=== PATIENT | female | born 1940 | race Caucasian/White ===

== ENCOUNTER 2017-12-25 01:12 | Inpatient (IN) | payer MEDICARE ==
[~2017-12-25] VITALS: Ht 149.9 cm; Wt 99.8 kg
--- NOTE | ~2017-12-25 | CN ---
PATIENT NAME:AISHWARYA ARCE MEDICAL RECORD: [id number] : 44 LOCATION:[facility] ADMIT DATE: 12/25/17 ACCOUNT: [id number] CONSULTING PHYSICIAN: HELDER BAKER MD REFERRING PHYSICIAN: ZACH RUVALCABA MD DATE OF CONSULTATION: 12/25/2017 CONSULT REQUESTING PHYSICIAN: Zach Ruvalcaba MD REASON FOR CONSULTATION: Shortness of breath, pneumonia. HISTORY OF PRESENT ILLNESS: Ms. Arce is a 77-year-old female. She is a bit confused. According to the patient, a couple of days ago, she had a laparoscopic surgery. She was discharged home. Since then, she has worsening shortness of breath. She is wheezing. She is coughing. She is running some fever and also she has abdominal pain. There is no associated nausea, vomiting, no diarrhea. REVIEW OF SYSTEMS: Mainly in the history of present illness. PAST MEDICAL HISTORY: 1. COPD. 2. Congestive heart failure. 3. Chronic hypoxic respiratory failure. 4. History of ovarian cancer. PAST SURGICAL HISTORY: 1. She has hysterectomy. 2. Colonoscopy. 3. Partial colectomy. 4. Recent laparoscopic surgery. The procedure is unknown. ALLERGIES: She is allergic to PENICILLIN, TYLENOL, HYDROCODONE, LORAZEPAM, MORPHINE, AND OXYCODONE. PRESENT MEDICATIONS: She is on Levaquin p.o. at home and she is on Lasix 40 mg b.i.d. PERSONAL AND SOCIAL HISTORY: The patient was still a current everyday smoker. She claims she quit a month ago. She is a nondrinker. FAMILY HISTORY: Noncontributory. PHYSICAL EXAMINATION: GENERAL: Now, the patient is lying comfortably. She is not in acute distress. VITAL SIGNS: The blood pressure is 120/59, pulse is 86, respiration is 17, temperature 97.9, SPO2 is 94% on 2 liters nasal cannula. HEENT: Conjunctivae is pink, sclerae nonicteric. NECK: Supple, no JVD. CHEST: There are bilateral crackles, wheeze on forceful expiration. HEART: Rate and rhythm regular, normal sound, no murmur. ABDOMEN: Soft, but is tender on palpation. Bowel sounds normal. RECTAL: Deferred. EXTREMITIES: No cyanosis, no clubbing. There is 1+ pedal edema. SKIN: Warm, normal turgor. CONSULT REPORT [id number] AISHWARYA ARCE CENTRAL NERVOUS SYSTEM: The patient is awake and alert, but she is confused. There is no obvious cranial nerve abnormality. IMAGING: Chest radiograph: There are bibasilar infiltrates. There are increased interstitial markings. OTHER LABORATORY DATA: CBC: WBC is 9.2, hemoglobin 11.9, hematocrit 38.6, platelet count is 333. Chemistry: Sodium 142, potassium 3.7, BUN is 5, creatinine is 1. IMPRESSION: 1. Pajkx-ve-rxlrgpb hypoxic respiratory failure. 2. Acute exacerbation of chronic obstructive pulmonary disease. 3. Bibasilar pneumonia, most likely hospital-acquired pneumonia. 4. Pleural effusion. 5. Congestive heart failure, possible chronic systolic dysfunction. 6. Pulmonary edema. 7. Tobacco dependence syndrome. 8. Status post laparoscopic surgery. The place and purpose is unknown. RECOMMENDATION: 1. Start on meropenem and Levaquin IV to cover for Gram-negative rods, anaerobe. 2. Albuterol/ipratropium nebulizer. 3. Brovana, budesonide nebulizer. 4. Hold on IV corticosteroid. 5. IV Lasix. 6. Follow up labs and chest radiograph. 7. We will try from the family that where she had the surgery. Dr. Ruvalcaba, thank you for involving me in the care of Ms. Arce. TRANSINT:[id number] Voice Confirmation ID: [id number] DOCUMENT ID: [id number] HELDER BAKER MD at 1340 CC: ZACH RUVALCABA [id number] DICTATION DATE: 12/25/17 1617 JEWEL LATHE OPERATOR: 12/26/17 0038 DIS IN 12/29/17 [facility] [address] [facility] [place] [address]
[~2017-12-25 01:12] MED LIST: AUGMENTIN 875-11 TAB PO; CHLORASEPTIC177 ML TOPICAL; DIFLUCAN150 MG PO; DIFLUCAN200 MG PO; LASIX40 MG PO; LEVAQUIN500 MG PO; PROVENTIL HFA6.7 GM INH; ROBITUSSIN AC (10 M1 PO; XANAX0.5 MG PO
[2017-12-25 01:47] LABS: BASOPHILS 0.2 % (0-2); EOSINOPHILS 3.8 % (0-7); HEMATOCRIT 38.6 % (36.0-48.0); HEMOGLOBIN 11.9 g/dL (12-16); IMMATURE GRANULOCYTES 1.2 % (0-5); LYMPHOCYTES 14.5 % (15-50); MCH 27.8 pg (26.0-34.0); MCHC 30.8 g/dL (31.0-37.0); MCV 90.2 fL (80.0-100.0); MONOCYTES 10.3 % (2-11); RBC 4.28 10x6/uL (4.00-5.40); RDW 15.6 % (11.5-14.5); WBC 9.2 10x3/uL (4.8-10.8)
[2017-12-25 01:48] LABS: PLATELET COUNT 333 10x3/uL (130-400)
[2017-12-25 01:54] LABS: ALKALINE PHOSPHATASE 53 U/L (46-116); ALT (SGPT) 10 U/L (10-68); APTT 34.8 SECONDS (22.8-39.4); BILIRUBIN - TOTAL 0.32 mg/dL (0.2-1.3); CALC OSMOLALITY 280 mosm/kg (275-300); CARBON DIOXIDE 30.9 mmol/L (21.0-32.0); CHLORIDE - SERUM 106 mmol/L (98-107); GLUCOSE 110 mg/dL (74-106); INR 1.03 (0.85-1.17); POTASSIUM - SERUM 3.7 mmol/L (3.5-5.1); PROTEIN - SERUM 5.3 g/dL (6.4-8.2); PROTIME 13.1 SECONDS (11.6-15.0); SODIUM 142 mmol/L (136-145); UREA NITROGEN 5 mg/dL (7-18); eGFR NON AFRICAN AMERICAN 57 mL/min (90-120)
[2017-12-25 02:01] LABS: PRO BNP 3045 pg/mL (0-450)
[2017-12-25 02:03] LABS: TROPONIN-I < 0.017 ng/mL (0.000-0.060)
[2017-12-25 02:27] LABS: AMYLASE - SERUM 35 U/L (25-115); CKMB 0.5 U/L (0.0-3.6); CREATINE KINASE 20 UL (21-215); LIPASE 123 U/L (73-393)
[2017-12-25] MEDS ORDERED: XANAX1 MG PO (06:53)
[2017-12-25] MEDS ORDERED: PROAIR HFA8.5 GM INH (06:53)
[2017-12-25] MEDS ORDERED: CIPRO500 MG PO (06:54)
[2017-12-25] MEDS ORDERED: COREG 3.1253.125 MG PO (06:54)
[2017-12-25] MEDS ORDERED: VITAMIN D250000 UNIT PO (06:55)
[2017-12-25] MEDS ORDERED: IOPHEN-C NR LI473 ML PO (06:55)
[2017-12-25] MEDS ORDERED: GABAPENTIN100 MG PO (06:56)
[2017-12-25] MEDS ORDERED: LASIX40 MG PO (06:56)
[2017-12-25] MEDS ORDERED: FLAGYL500 MG PO (06:57)
[2017-12-25] MEDS ORDERED: ELOCON45 GM TOPICAL (06:58)
[2017-12-25] MEDS ORDERED: ULTRAM50 MG PO (06:59)
[2017-12-25 07:25] VITALS: BP 112/68; BMI 44.5
[2017-12-25 08:15] VITALS: BP 120/59
[2017-12-25 11:26] LABS: APPEARANCE CLEAR (CLEAR); COLOR STRAW (YELLOW); SPECIFIC GRAVITY 1.005 (1.005-1.020)
[2017-12-25 11:27] LABS: BILIRUBIN NEGATIVE (NEGATIVE); GLUCOSE NEGATIVE (NEGATIVE); KETONE NEGATIVE (NEGATIVE); NITRITE NEGATIVE (NEGATIVE); PROTEIN NEGATIVE (NEGATIVE); UROBILINOGEN NORMAL (NORMAL)
[2017-12-25 12:05] VITALS: Ht 149.9 cm; Wt 99.8 kg
[2017-12-25 13:04] VITALS: BP 108/66
[2017-12-25 15:58] VITALS: BP 99/47
[2017-12-25 21:57] VITALS: BP 98/58
[2017-12-26 00:57] VITALS: BP 104/54
[2017-12-26 05:45] VITALS: BP 106/54
[2017-12-26 06:05] LABS: BASOPHILS 0.3 % (0-2); EOSINOPHILS 3.8 % (0-7); HEMATOCRIT 39.2 % (36.0-48.0); IMMATURE GRANULOCYTES 1.8 % (0-5); LYMPHOCYTES 17.4 % (15-50); MCH 27.6 pg (26.0-34.0); MCHC 30.6 g/dL (31.0-37.0); MCV 90.3 fL (80.0-100.0); MONOCYTES 11.3 % (2-11); NEUTROPHILS 65.4 % (40-80); PLATELET COUNT 370 10x3/uL (130-400); RBC 4.34 10x6/uL (4.00-5.40); RDW 15.5 % (11.5-14.5)
[2017-12-26 06:31] LABS: ALBUMIN 2.1 g/dL (3.4-5.0); ANION GAP 7.4 mmol/L (8-16); BILIRUBIN - TOTAL 0.5 mg/dL (0.2-1.3); CALCIUM 7.9 mg/dL (8.5-10.1); CARBON DIOXIDE 36.9 mmol/L (21.0-32.0); CREATININE - SERUM 1.1 mg/dL (0.6-1.3); POTASSIUM - SERUM 3.3 mmol/L (3.5-5.1); PROTEIN - SERUM 5.5 g/dL (6.4-8.2)
[2017-12-26 09:16] VITALS: BP 100/45
[2017-12-26 12:08] VITALS: BP 84/44
[2017-12-26 16:07] VITALS: BP 74/41
[2017-12-26 23:18] VITALS: BP 87/42
[2017-12-27 04:00] VITALS: BP 111/83
[2017-12-27 05:15] LABS: BASOPHILS 0.2 % (0-2); EOSINOPHILS 2.4 % (0-7); HEMOGLOBIN 11.9 g/dL (12-16); IMMATURE GRANULOCYTES 2.6 % (0-5); LYMPHOCYTES 16.5 % (15-50); MCH 27.6 pg (26.0-34.0); MCHC 30.5 g/dL (31.0-37.0); MCV 90.5 fL (80.0-100.0); MEAN PLATELET VOLUME 10.6 fL (7.4-10.4); MONOCYTES 11.5 % (2-11); NEUTROPHILS 66.8 % (40-80); PLATELET COUNT 367 10x3/uL (130-400); RBC 4.31 10x6/uL (4.00-5.40); RDW 15.6 % (11.5-14.5); WBC 9.2 10x3/uL (4.8-10.8)
[2017-12-27 05:45] LABS: ALBUMIN 2.1 g/dL (3.4-5.0); ANION GAP 9.8 mmol/L (8-16); BILIRUBIN - TOTAL 0.51 mg/dL (0.2-1.3); CALCIUM 8.5 mg/dL (8.5-10.1); CARBON DIOXIDE 36.3 mmol/L (21.0-32.0); CREATININE - SERUM 1.3 mg/dL (0.6-1.3); POTASSIUM - SERUM 4.1 mmol/L (3.5-5.1); PROTEIN - SERUM 5.5 g/dL (6.4-8.2)
[2017-12-27 08:25] VITALS: BP 90/60
[2017-12-27 14:08] VITALS: BP 80/62
[2017-12-27 16:47] VITALS: BP 86/44
[2017-12-27 20:00] VITALS: BP 88/42
[2017-12-28 04:00] VITALS: BP 96/41
[2017-12-28 05:04] LABS: BASOPHILS 0.2 % (0-2); EOSINOPHILS 2.3 % (0-7); HEMATOCRIT 39.7 % (36.0-48.0); IMMATURE GRANULOCYTES 2.5 % (0-5); LYMPHOCYTES 15.8 % (15-50); MCH 27.6 pg (26.0-34.0); MCHC 30.2 g/dL (31.0-37.0); MCV 91.3 fL (80.0-100.0); MEAN PLATELET VOLUME 10.9 fL (7.4-10.4); MONOCYTES 10.3 % (2-11); NEUTROPHILS 68.9 % (40-80); PLATELET COUNT 345 10x3/uL (130-400); RBC 4.35 10x6/uL (4.00-5.40); RDW 15.9 % (11.5-14.5); WBC 8.8 10x3/uL (4.8-10.8)
[2017-12-28 05:27] LABS: ALBUMIN 2.2 g/dL (3.4-5.0); ANION GAP 9.2 mmol/L (8-16); BILIRUBIN - TOTAL 0.41 mg/dL (0.2-1.3); CALCIUM 8.2 mg/dL (8.5-10.1); CARBON DIOXIDE 36.8 mmol/L (21.0-32.0); CREATININE - SERUM 1.4 mg/dL (0.6-1.3); PROTEIN - SERUM 5.6 g/dL (6.4-8.2)
[2017-12-28 09:39] VITALS: BP 88/52
[2017-12-28 12:02] VITALS: BP 86/44
[2017-12-28 16:17] VITALS: BP 86/43
[2017-12-28 20:00] VITALS: BP 105/34
[2017-12-29 01:45] VITALS: BP 96/50
[2017-12-29 04:00] VITALS: BP 95/47
[2017-12-29 04:50] LABS: BASOPHILS 0.1 % (0-2); EOSINOPHILS 2.1 % (0-7); HEMOGLOBIN 11.1 g/dL (12-16); IMMATURE GRANULOCYTES 2.6 % (0-5); LYMPHOCYTES 13.9 % (15-50); MCH 27.3 pg (26.0-34.0); MCV 91.1 fL (80.0-100.0); MEAN PLATELET VOLUME 10.9 fL (7.4-10.4); NEUTROPHILS 72.3 % (40-80); PLATELET COUNT 327 10x3/uL (130-400); RBC 4.06 10x6/uL (4.00-5.40); WBC 10.7 10x3/uL (4.8-10.8)
[2017-12-29 05:10] LABS: ALBUMIN 2.1 g/dL (3.4-5.0); ANION GAP 10.2 mmol/L (8-16); BILIRUBIN - TOTAL 0.4 mg/dL (0.2-1.3); CALCIUM 7.7 mg/dL (8.5-10.1); CARBON DIOXIDE 35.4 mmol/L (21.0-32.0); CREATININE - SERUM 1.4 mg/dL (0.6-1.3); POTASSIUM - SERUM 4.6 mmol/L (3.5-5.1); PROTEIN - SERUM 5.4 g/dL (6.4-8.2)
[2017-12-29 08:08] VITALS: BP 95/54
[2017-12-29] MEDS ORDERED: LEVAQUIN750 MG PO (12:14)
[2017-12-29 12:53] VITALS: BP 90/40
== END 2017-12-29 16:36 | DRG 291 ==
LOC: D.ER 01:12 → D.MS 05:20
PROVIDERS: Family Medicine
DX: I50.33 Acute on chronic diastolic (congestive) heart failure (principal); J18.9 Pneumonia, unspecified organism; J96.01 Acute respiratory failure with hypoxia; J44.0 Chronic obstructive pulmonary disease with (acute) lower respiratory infection; J44.1 Chronic obstructive pulmonary disease with (acute) exacerbation; Z68.41 Body mass index [BMI] 40.0-44.9, adult; Y95 Nosocomial condition; K59.00 Constipation, unspecified; E66.01 Morbid (severe) obesity due to excess calories; F17.200 Nicotine dependence, unspecified, uncomplicated; R41.82 Altered mental status, unspecified; T42.4X5A Adverse effect of benzodiazepines, initial encounter; F03.90 Unspecified dementia, unspecified severity, without behavioral disturbance, psychotic disturbance, mood disturbance, and anxiety; Z99.81 Dependence on supplemental oxygen; F41.9 Anxiety disorder, unspecified

== ENCOUNTER 2017-12-29 16:11 | Inpatient (IN) | payer MEDICARE ==
[~2017-12-29] VITALS: Ht 149.9 cm; Wt 93.9 kg
--- NOTE | ~2017-12-29 | CN ---
PATIENT NAME:AISHWARYA ARCE MEDICAL RECORD: [id number] : 44 LOCATION:[facility] ADMIT DATE: 12/29/17 ACCOUNT: [id number] CONSULTING PHYSICIAN: PHYLICIA ROSARIO MD REFERRING PHYSICIAN: TRICIA CARRILLO MD DATE OF CONSULTATION: 01/07/2018 CHIEF COMPLAINT: Pain. HISTORY OF PRESENT ILLNESS: I have been asked to see this patient due to right lower quadrant pain. She has an abnormal CT scan as well. The patient underwent a laparoscopic appendectomy due to ruptured appendicitis with an abscess on 12/21/2017. She has a long list of comorbidities, which are listed in tied portion of this consultation note addendum. The pathology on the appendix revealed acute appendicitis and periappendicitis including a mesoappendiceal abscess. There was a full-thickness appendiceal defect consistent with a perforation. There was an epithelial infiltrate present within the appendix, which was suspicious for a carcinoid tumor. The patient had some postoperative hypotension over at [facility]. She underwent a CT scan here recently, which revealed postoperative changes with surgical clips in the right lower quadrant. There was a mass-like density in adjacent loops of small bowel, which is difficult to characterize and measures up to 6.5 cm in size. It could represent a hematoma. There is stranding of adjacent fat suggesting inflammatory changes. I do not see any drainable purulence present. I am going to review the CT scan with the radiologist to make sure that there is not something that we could drain utilizing a CT-guided drain. This is a consultation note addendum. For the typed portion of the consultation note, please see the chart. This would include the past medical and surgical history, current medications, allergies, social history as well as family history. REVIEW OF SYSTEMS: Really unreliable from the patient. PHYSICAL EXAMINATION: GENERAL: The patient appears acutely ill. Also appears chronically ill. The entire physical examination was performed in the presence of a female nurse. EARS: External ears appear normal. EYES: Extraocular movements are intact. NECK: Trachea is midline. CHEST: No intercostal retractions. PULMONARY: Nonlabored. No stridor. ABDOMEN: Right lower quadrant tenderness with guarding. No peritonitis to percussion. EXTREMITIES: No peripheral cyanosis. INTEGUMENT: There is an intertriginous rash. BACK: There is thoracic kyphosis present. IMPRESSION: Inflammatory mass in the right lower quadrant on CT scan, likely representing a hematoma, phlegmon or infected hematoma and less likely an abscess. PLAN: Blood cultures. I will start IV antibiotics. I will review the CT images with the radiologist to ensure that we do not have a fluid collection that can be drained. CONSULT REPORT [id number] CLAUDEAISHWARYA L TRANSINT:[id number] Voice Confirmation ID: [id number] DOCUMENT ID: [id number] CC: Dr. Osvaldo Beck & Dr. Osvaldo ROSARIO, PHYLICIA PENN at 1042 CC: TRICIA CARRILLO [id number] DICTATION DATE: 01/07/18 1242 CORONER TECHNICIAN: 01/07/18 1308 DIS IN 01/12/18 [place] [id number] [place] [address]
--- NOTE | ~2017-12-29 | RHP ---
PATIENT: AISHWARYA ARCE MEDICAL RECORD: [id number] ACCOUNT: [id number] LOCATION:[facility]1112 : 44 ADMISSION DATE: 12/29/17 REHABILITATION HISTORY AND PHYSICAL EXAMINATION POST ADMISSION PHYSICIAN EXAMINATION POST-ADMISSION PHYSICAL EXAMINATION AND HISTORY AND PHYSICAL DATE OF ADMISSION: 12/29/2017 ADMITTING DIAGNOSES: Acute exacerbation of chronic obstructive pulmonary disease. HISTORY OF PRESENT ILLNESS: The patient is a 77-year-old female patient admitted with acute exacerbation of COPD, was sent to ER on 12/25 and was admitted to the hospital. She was complaining of shortness of breath, productive cough, chills, fever, swelling and abdominal pain. States she had a lap appy approximately 5 days prior to this and was discharged home. Since then, she had worsening symptoms. On exam, she had bilateral crackles and wheezes. She appeared fatigued and weak. She was alert, but somewhat confused. She also had a recent fall striking her head on a wooden floor. She had a past medical history of emphysema. She is on O2 at 1 liter at home. Had a history of ovarian cancer, but this is in remission. Chest x-ray showed bibasilar infiltrates, small pleural effusions, and possible pneumonia. Mild interstitial prominence, which could be related to pulmonary edema. She was admitted for pulmonary consult. Started on Merrem, Levaquin, albuterol, Brovana, and IV Lasix. A speech therapy evaluation showed oral phase dysphagia and dysarthric speech with no obvious signs of aspiration. A mechanical soft diet with thin liquids was ordered, and speech therapy has been following her, helping her with her swallowing, dietary tolerance, and speech intelligibility. Previously, she was living alone, was mildly independent with ADLs and mobility using a cane and rolling walker. She has a therapy dog that she is uses to calm her anxiety. Currently, she is eabmnizy-yo-lfc assist for ADLs and mobility. She is requiring continuous O2 at 2 liters to get her sat 92% or better. Her mentation is back to baseline. She is still on a shelter monitor. She has been in a normal sinus rhythm. She is working with speech therapy, PT and OT. She has ambulated 8 feet with PT at 50% assist. She is motivated to regain her strength and hopefully return home. Comorbidities include ksxfl-de-crxxzdj hypoxic respiratory failure, bibasilar pneumonia, congestive heart failure, pulmonary edema, acute dyspnea, hypoxia, hypotension, emphysema, dysarthria of speech, fatigue, weakness, anxiety, mild dementia, recent fall, productive cough. PAST MEDICAL HISTORY: Significant for COPD, congestive heart failure, chronic hypoxic respiratory failure, and ovarian cancer. PAST SURGICAL HISTORY: Includes hysterectomy, colonoscopy, partial colectomy, and recent laparoscopic surgery. ALLERGIES: PENICILLIN, ATIVAN, MORPHINE, TYLENOL, HYDROCODONE, AND OXYCODONE. CURRENT MEDICATIONS: Include vitamin D 50,000 units weekly. She is on Floranex daily, Levaquin 750 mg daily, Elocon to apply topically, furosemide 40 mg daily, carvedilol 3.125 mg b.i.d. with meals, tramadol 50 mg every 6 hours p.r.n., Neurontin 100 mg t.i.d., Robitussin-DM 10 cc every 6 hours p.r.n., Xanax 1 mg t.i.d. p.r.n., and Ventolin inhaler. HISTORY AND PHYSICAL [id number] AISHWARYA ARCE HABITS: No alcohol or tobacco use. FAMILY HISTORY: Noncontributory. SOCIAL HISTORY: The patient hopes to return back home and get back to her prior level of functioning. REVIEW OF SYSTEMS: GENERAL: Does complain of some weakness and fatigue. HEENT: Does complain of some cold, cough, and congestion. CARDIOVASCULAR: Denies any chest pain. LUNGS: Denies any shortness of breath. PHYSICAL EXAMINATION: VITAL SIGNS: Stable, afebrile. GENERAL: Morbidly obese female, in no acute distress upon exam. HEENT: Normocephalic and atraumatic. Mucosa moist. NECK: Supple. No lymphadenopathy. LUNGS: Coarse breath sounds bilaterally. CARDIOVASCULAR: Regular rate and rhythm. ABDOMEN: Benign. EXTREMITIES: No clubbing, cyanosis or edema. NEUROLOGIC: Slow to mentate. LABORATORY DATA: Her white count is 10.0. Her H&H are 12 and 39, platelet count was 350. Sodium 140, potassium 4.4, BUN and creatinine of 24 and 1.2, and blood sugars noted to be 113. ASSESSMENT: This 77-year-old female patient admitted to rehab with a working diagnosis of acute exacerbation of chronic obstructive pulmonary disease. The patient has potential to make improvement. We will institute the following multidisciplinary therapies including, but not limited to physical, occupational, respiratory, speech, nutritional services, prosthetics and orthotics. Given her complex condition and risk for more complications, rehabilitation services cannot be provided at a low level of care such as a retirement facility. PLAN: 1. Admit to [facility] for intensive inpatient therapy to include the following disciplines: A. Physical therapy to improve gait, all transfer skills and bed mobility to a modified independent level. B. Occupational therapy to improve activities of daily living to a modified independent level. C. Case management to assist with discharge planning and placement options. D. Nutrition to assist with nutritional needs. E. Rehabilitation nursing to assist in monitoring the patient's underlying medical conditions and to assist with any type of bowel or bladder management. 2. The patient's current medications will be continued. 3. The patient will be placed on standard fall precautions. 4. The patient's estimated length of stay is approximately 7-10 days. 5. We will discuss this patient during care team staff meeting this week. TRANSINT:[id number] Voice Confirmation ID: [id number] DOCUMENT ID: [id number] HISTORY AND PHYSICAL [id number] AISHWARYA ARCE notes whether there has been none or any medical/functional change since admission: - No change since prescreen. ILDEFONSO attests patient continues to be appropriate for IRF: - Continues to be appropriate. TRICIA CARRILLO MD at 1055 CC: [id number] DICTATION DATE: 12/30/17 0915 GUEST SERVICES ATTENDANT: 12/30/17 1007 ADM IN [place] [id number] [place] [id number]
--- NOTE | ~2017-12-29 | DS ---
PATIENT:AISHWARYA ARCE :44 MEDICAL RECORD: [id number] DISCHARGE SUMMARY ADMISSION DATE: 12/29/17 DISCHARGE DATE: 01/12/18 This is a discharge dated 01/12/2018 from inpatient rehab. PRIMARY DIAGNOSIS: Decreased functional ability and ability to provide activities of daily living secondary to COPD exacerbation. SECONDARY DIAGNOSES: 1. Qsnzs-yc-waiglwb hypoxic respiratory failure. 2. Dysphagia. 3. Bilateral pneumonia. 4. Anxiety. 5. Congestive heart failure. 6. Mild dementia. 7. Infected phlegmon of the right lower quadrant, status post laparoscopic appendectomy. CONSULTS IN THIS HOSPITALIZATION: Surgery with Dr. Mendes. HOSPITAL COURSE: Full H&P is located elsewhere on the chart on this 77-year-old female who was admitted to inpatient rehab for physical therapy and occupational therapy to improve gait, transfer skills, bed mobility, and activities of daily living to modified independent level. She was evaluated by PT and OT and their plans of care were followed. She required mcc care for observation, assessment, and medication administration. She was seen by speech therapy for management of dysphagia. She had a spike in her white count. Urine cultures and stool for C. diff was negative. She was on antibiotics. She had significant abdominal pain. Surgery was consulted. She was seen by Dr. Mendes, who felt that this was an infected phlegmon, status post her laparoscopic appendectomy. She was cooperative with therapies with some progress towards goal. Case management was involved for discharge planning. She improved dramatically and was considered stable for discharge from a rehab standpoint on 01/12/2018. DISCHARGE MEDICATIONS: As per discharge medication reconciliation. DISCHARGE DISPOSITION: The patient is discharged home. She will continue her current diet and level of activity. She will have home health for continued PT, OT, and nursing care. She will follow up with primary care in one week and specialist as directed. At least 30 minutes was spent in this discharge activity. TRANSINT:[id number] Voice Confirmation ID: [id number] DOCUMENT ID: [id number] Dictated By: GRAYSON MOSQUERA I have interviewed/examined the above patient and agree with these documented findings. DISCHARGE SUMMARY REPORT [id number] AISHWARYA ARCE SCOTT MD at 1355 at 1349 CC: [id number] DICTATION DATE: 02/06/18 1447 HOUSEKEEPING COORDINATOR: 02/06/18 1515 DIS IN 01/12/18 [place] [id number] [place] [id number]
--- NOTE | ~2017-12-29 | PN ---
PATIENT:AISHWARYA ARCE MEDICAL RECORD: [id number] LOCATION:[facility] ADMISSION DATE: 12/29/17 PROGRESS NOTE DATE OF SERVICE: 01/08/2018 CHIEF COMPLAINT: Confused. I received a call last evening that Ms. Arce was confused and this was attributed to the meropenem. I switched her to Levaquin and Flagyl. She states she is still having some pain in the right lower quadrant. She is tender in the right lower quadrant. The entire examination was performed in the presence of a female nurse. It hurts when she moves and coughs. This indicates that she has some localized peritonitis. We are treating a phlegmon, which may be infected hematoma in the right lower quadrant; however, there does not appear to be anything to drain at this time. I discussed this yesterday with Dr. Dewey. Palpation aggravates. Nothing alleviates. Cough also aggravates. Symptoms are moderate. They are nonradiating. This is a progress note addendum. For the typed portion of the progress note, please see the chart. This will include the past medical and surgical history, current medications, allergies, social history as well as family history. REVIEW OF SYSTEMS: No nausea, no vomiting, no fever, no chills. Positive for abdominal pain. Positive for generalized weakness. The review of systems is negative other than as is described above. PHYSICAL EXAMINATION: GENERAL: The patient does appear acutely ill. Also appears chronically ill. VITAL SIGNS: Reviewed. EARS: External ears appear normal. EYES: Extraocular movements are intact. NECK: Trachea is midline. CHEST: No intercostal retractions. PULMONARY: Nonlabored, no stridor. ABDOMEN: As described above. EXTREMITIES: No peripheral cyanosis. INTEGUMENT: There is an intertriginous rash. BACK: Thoracic kyphosis is present. NEUROLOGIC: Answers questions appropriately. She has decreased range of motion of the extremities. PSYCHIATRIC: Anxious affect. IMPRESSION: 1. Confusion. 2. Infected phlegmon in the right lower quadrant after laparoscopic appendectomy. PLAN: Continue IV antibiotics. Serial abdominal examinations. Should her condition worsen, this would necessitate a repeat CT scan. TRANSINT:[id number] Voice Confirmation ID: [id number] DOCUMENT ID: [id number] PROGRESS NOTE [id number] AISHWARYA ARCE, PHYLICIA PENN at 1042 CC: [id number] DICTATION DATE: 01/08/18 1601 GEOPHYSICAL OBSERVER: 01/08/18 1628 DIS IN 01/12/18 [facility] [address] [place] [id number]
[~2017-12-29 16:11] MED LIST changes: +CIPRO500 MG PO; +COREG 3.1253.125 MG PO; +ELOCON45 GM TOPICAL; +FLAGYL500 MG PO; +GABAPENTIN100 MG PO; +IOPHEN-C NR LI473 ML PO; +LEVAQUIN750 MG PO; +PROAIR HFA8.5 GM INH; +ULTRAM50 MG PO; +VITAMIN D250000 UNIT PO; +XANAX1 MG PO
[2017-12-29 18:15] VITALS: BP 92/53; BMI 41.9
[2017-12-30 01:18] VITALS: BP 100/51
[2017-12-30 06:59] LABS: BASOPHILS 0.1 % (0-2); EOSINOPHILS 1.9 % (0-7); HEMATOCRIT 39.4 % (36.0-48.0); HEMOGLOBIN 11.9 g/dL (12-16); IMMATURE GRANULOCYTES 3.1 % (0-5); LYMPHOCYTES 10.9 % (15-50); MCH 27.8 pg (26.0-34.0); MCHC 30.2 g/dL (31.0-37.0); MCV 92.1 fL (80.0-100.0); MEAN PLATELET VOLUME 10.9 fL (7.4-10.4); PLATELET COUNT 350 10x3/uL (130-400); RBC 4.28 10x6/uL (4.00-5.40); RDW 16.1 % (11.5-14.5)
[2017-12-30 07:08] LABS: CALCIUM 8.3 mg/dL (8.5-10.1); CARBON DIOXIDE 32.4 mmol/L (21.0-32.0); CREATININE - SERUM 1.2 mg/dL (0.6-1.3); POTASSIUM - SERUM 4.4 mmol/L (3.5-5.1)
[2017-12-30 08:11] VITALS: BP 97/45
[2017-12-30 14:16] VITALS: Ht 149.9 cm; Wt 93.9 kg
[2017-12-30 20:30] VITALS: BP 86/44
[2017-12-31 06:14] LABS: BASOPHILS 0.1 % (0-2); EOSINOPHILS 2.5 % (0-7); HEMATOCRIT 37.2 % (36.0-48.0); IMMATURE GRANULOCYTES 3.4 % (0-5); LYMPHOCYTES 18.2 % (15-50); MCH 27.5 pg (26.0-34.0); MCHC 29.6 g/dL (31.0-37.0); MEAN PLATELET VOLUME 11.2 fL (7.4-10.4); MONOCYTES 10.4 % (2-11); NEUTROPHILS 65.4 % (40-80); PLATELET COUNT 340 10x3/uL (130-400); RDW 16.2 % (11.5-14.5); WBC 8.5 10x3/uL (4.8-10.8)
[2017-12-31 06:31] LABS: ANION GAP 9.4 mmol/L (8-16); CALCIUM 7.8 mg/dL (8.5-10.1); CARBON DIOXIDE 31.3 mmol/L (21.0-32.0); POTASSIUM - SERUM 4.7 mmol/L (3.5-5.1)
[2017-12-31 08:54] VITALS: BP 92/48
[2017-12-31 19:40] VITALS: BP 93/51
[2018-01-01 09:35] VITALS: BP 128/68
[2018-01-01 16:34] VITALS: BP 104/50
[2018-01-01 21:22] VITALS: BP 104/63
[2018-01-02 07:52] VITALS: BP 95/48
[2018-01-03 07:30] VITALS: BP 100/54
[2018-01-03 18:51] VITALS: BP 97/52
[2018-01-04 07:39] LABS: BASOPHILS 0.1 % (0-2); EOSINOPHILS 0.2 % (0-7); HEMATOCRIT 37.3 % (36.0-48.0); HEMOGLOBIN 11.4 g/dL (12-16); IMMATURE GRANULOCYTES 0.6 % (0-5); LYMPHOCYTES 7.9 % (15-50); MCH 27.5 pg (26.0-34.0); MCHC 30.6 g/dL (31.0-37.0); MCV 89.9 fL (80.0-100.0); MONOCYTES 7.9 % (2-11); NEUTROPHILS 83.3 % (40-80); PLATELET COUNT 323 10x3/uL (130-400); RBC 4.15 10x6/uL (4.00-5.40); RDW 15.8 % (11.5-14.5); WBC 18.8 10x3/uL (4.8-10.8)
[2018-01-04 07:53] LABS: ANION GAP 10.4 mmol/L (8-16); CALCIUM 8.4 mg/dL (8.5-10.1); CARBON DIOXIDE 35.1 mmol/L (21.0-32.0); CREATININE - SERUM 0.9 mg/dL (0.6-1.3); POTASSIUM - SERUM 4.5 mmol/L (3.5-5.1)
[2018-01-04 08:09] VITALS: BP 95/57
[2018-01-04 20:18] VITALS: BP 101/46
[2018-01-05 07:46] VITALS: BP 114/57
[2018-01-05 14:47] LABS: APPEARANCE CLEAR (CLEAR); BILIRUBIN NEGATIVE (NEGATIVE); COLOR YELLOW (YELLOW); GLUCOSE NEGATIVE (NEGATIVE); KETONE NEGATIVE (NEGATIVE); NITRITE NEGATIVE (NEGATIVE); PROTEIN NEGATIVE (NEGATIVE); SPECIFIC GRAVITY 1.015 (1.005-1.020); UROBILINOGEN NORMAL (NORMAL)
[2018-01-06 08:03] VITALS: BP 98/54
[2018-01-06 19:42] VITALS: BP 117/48
[2018-01-07 09:45] VITALS: BP 120/54
[2018-01-07 19:15] VITALS: BP 105/33
[2018-01-08 08:00] VITALS: BP 88/42
[2018-01-08 20:15] VITALS: BP 106/43
[2018-01-09 07:11] LABS: BASOPHILS 0.4 % (0-2); EOSINOPHILS 1.3 % (0-7); HEMOGLOBIN 10.7 g/dL (12-16); IMMATURE GRANULOCYTES 0.6 % (0-5); LYMPHOCYTES 15.5 % (15-50); MCH 27.4 pg (26.0-34.0); MCHC 29.7 g/dL (31.0-37.0); MCV 92.3 fL (80.0-100.0); MEAN PLATELET VOLUME 10.9 fL (7.4-10.4); MONOCYTES 9.2 % (2-11); PLATELET COUNT 363 10x3/uL (130-400); RDW 15.7 % (11.5-14.5); WBC 9.7 10x3/uL (4.8-10.8)
[2018-01-09 07:38] LABS: ALBUMIN 2.2 g/dL (3.4-5.0); ANION GAP 10.3 mmol/L (8-16); BILIRUBIN - TOTAL 0.39 mg/dL (0.2-1.3); CALCIUM 8.3 mg/dL (8.5-10.1); CARBON DIOXIDE 32.3 mmol/L (21.0-32.0); CREATININE - SERUM 0.9 mg/dL (0.6-1.3); MAGNESIUM - SERUM 2.4 mg/dL (1.8-2.4); PHOSPHOROUS 3.4 mg/dL (2.5-4.9); POTASSIUM - SERUM 5.6 mmol/L (3.5-5.1); PROTEIN - SERUM 5.7 g/dL (6.4-8.2)
[2018-01-09 07:40] VITALS: BP 101/52
[2018-01-09 15:59] VITALS: BP 100/46
[2018-01-09 20:15] VITALS: BP 104/47
[2018-01-10 06:10] LABS: BASOPHILS 0.2 % (0-2); EOSINOPHILS 1.3 % (0-7); HEMATOCRIT 38.3 % (36.0-48.0); HEMOGLOBIN 11.4 g/dL (12-16); IMMATURE GRANULOCYTES 0.5 % (0-5); LYMPHOCYTES 14.3 % (15-50); MCH 27.1 pg (26.0-34.0); MCHC 29.8 g/dL (31.0-37.0); MCV 91.2 fL (80.0-100.0); MEAN PLATELET VOLUME 10.7 fL (7.4-10.4); MONOCYTES 8.7 % (2-11); PLATELET COUNT 362 10x3/uL (130-400); RDW 15.4 % (11.5-14.5); WBC 9.4 10x3/uL (4.8-10.8)
[2018-01-10 06:26] LABS: ANION GAP 8.4 mmol/L (8-16); CALCIUM 8.9 mg/dL (8.5-10.1); CARBON DIOXIDE 36.7 mmol/L (21.0-32.0); CREATININE - SERUM 0.9 mg/dL (0.6-1.3); POTASSIUM - SERUM 5.1 mmol/L (3.5-5.1)
[2018-01-10 08:00] VITALS: BP 120/67
[2018-01-10 22:40] VITALS: BP 115/68
[2018-01-11 08:00] VITALS: BP 85/45
[2018-01-11 19:00] VITALS: BP 84/48
[2018-01-12 07:36] LABS: BASOPHILS 0.3 % (0-2); EOSINOPHILS 1.4 % (0-7); HEMATOCRIT 35.2 % (36.0-48.0); HEMOGLOBIN 10.5 g/dL (12-16); IMMATURE GRANULOCYTES 1.4 % (0-5); MCH 27.3 pg (26.0-34.0); MCHC 29.8 g/dL (31.0-37.0); MCV 91.7 fL (80.0-100.0); MEAN PLATELET VOLUME 10.5 fL (7.4-10.4); MONOCYTES 10.4 % (2-11); NEUTROPHILS 70.5 % (40-80); PLATELET COUNT 322 10x3/uL (130-400); RBC 3.84 10x6/uL (4.00-5.40); WBC 7.8 10x3/uL (4.8-10.8)
[2018-01-12 07:46] LABS: ANION GAP 7.6 mmol/L (8-16); CALCIUM 8.2 mg/dL (8.5-10.1); CARBON DIOXIDE 34.6 mmol/L (21.0-32.0); CREATININE - SERUM 1.1 mg/dL (0.6-1.3); POTASSIUM - SERUM 4.2 mmol/L (3.5-5.1)
[2018-01-12 09:30] VITALS: BP 97/74
== END 2018-01-12 12:30 | disposition home health service (06) | DRG 190 ==
LOC: D.REHAB 16:11
PROVIDERS: Emergency Medicine; Family Medicine; Surgery
DX: J44.1 Chronic obstructive pulmonary disease with (acute) exacerbation (principal); J96.21 Acute and chronic respiratory failure with hypoxia; J18.9 Pneumonia, unspecified organism; I50.33 Acute on chronic diastolic (congestive) heart failure; J81.1 Chronic pulmonary edema; R13.11 Dysphagia, oral phase; I50.9 Heart failure, unspecified; I95.9 Hypotension, unspecified; R47.1 Dysarthria and anarthria; R53.83 Other fatigue; R53.1 Weakness; F41.9 Anxiety disorder, unspecified; F03.90 Unspecified dementia, unspecified severity, without behavioral disturbance, psychotic disturbance, mood disturbance, and anxiety; R10.9 Unspecified abdominal pain; R41.0 Disorientation, unspecified; T36.1X5A Adverse effect of cephalosporins and other beta-lactam antibiotics, initial encounter; Y92.239 Unspecified place in hospital as the place of occurrence of the external cause

== ENCOUNTER 2019-06-08 15:38 | Emergency (ER) | payer MEDICARE ==
[~2019-06-08] VITALS: Ht 149.9 cm; Wt 95.5 kg
[2019-06-08 15:40] VITALS: Ht 149.9 cm; Wt 95.5 kg
[2019-06-08] MEDS ORDERED: SYMBICORT 80-10.2 GM INH (15:42)
[2019-06-08] MEDS ORDERED: ALOPHEN PILLS5 MG PO (15:42)
[2019-06-08] MEDS ORDERED: BUSPIRONE HCL7.5 MG PO (15:43)
[2019-06-08] MEDS ORDERED: METOPROLOL TART25 MG PO (15:43)
[2019-06-08] MEDS ORDERED: CYMBALTA60 MG PO (15:43)
[2019-06-08] MEDS ORDERED: MUPIROCIN15 GM TOPICAL (15:44)
[2019-06-08] MEDS ORDERED: SULFAMETHOXAZOL1 TA2 PO (15:45)
[2019-06-08] MEDS ORDERED: SPIRIVA18 MCG INH (15:45)
[2019-06-08 16:43] LABS: BASOPHILS 0.1 % (0-2); EOSINOPHILS 0.6 % (0-7); HEMOGLOBIN 13.3 g/dL (12-16); IMMATURE GRANULOCYTES 1.4 % (0-5); LYMPHOCYTES 11.6 % (15-50); MCH 28.4 pg (26.0-34.0); MCHC 31.7 g/dL (31.0-37.0); MCV 89.7 fL (80.0-100.0); MEAN PLATELET VOLUME 10.6 fL (7.4-10.4); MONOCYTES 8.4 % (2-11); NEUTROPHILS 77.9 % (40-80); PLATELET COUNT 278 10x3/uL (130-400); RBC 4.68 10x6/uL (4.00-5.40); WBC 12.9 10x3/uL (4.8-10.8)
[2019-06-08 16:44] LABS: APPEARANCE CLEAR (CLEAR); BILIRUBIN NEGATIVE (NEGATIVE); COLOR YELLOW (YELLOW); GLUCOSE NEGATIVE (NEGATIVE); KETONE NEGATIVE (NEGATIVE); NITRITE NEGATIVE (NEGATIVE); PROTEIN TRACE mg/dL (NEGATIVE); SPECIFIC GRAVITY 1.005 (1.005-1.020); UROBILINOGEN NORMAL (NORMAL)
[2019-06-08 16:45] LABS: EPITHELIAL CELLS 0-5 /hpf (0-5); RED CELLS - URINE 0-5 /hpf (0-5); WHITE CELLS - URINE OCC /hpf (0-5)
[2019-06-08 16:46] LABS: BACTERIA FEW /hpf (NONE SEEN)
[2019-06-08 16:48] LABS: ALBUMIN 3.2 g/dL (3.4-5.0); ANION GAP 11.8 mmol/L (8-16); BILIRUBIN - TOTAL 0.86 mg/dL (0.2-1.3); CALCIUM 8.4 mg/dL (8.5-10.1); MAGNESIUM - SERUM 2.5 mg/dL (1.8-2.4); POTASSIUM - SERUM 4.8 mmol/L (3.5-5.1); PROTEIN - SERUM 6.7 g/dL (6.4-8.2)
[2019-06-08 16:53] LABS: UDS - AMPHET NEGATIVE QUAL (NEGATIVE); UDS - BARB NEGATIVE QUAL (NEGATIVE); UDS - BENZO POSITIVE QUAL (NEGATIVE); UDS - COCAINE NEGATIVE QUAL (NEGATIVE); UDS - OPIATE NEGATIVE QUAL (NEGATIVE); UDS - PCP NEGATIVE QUAL (NEGATIVE); UDS - THC NEGATIVE QUAL (NEGATIVE)
[2019-06-08 20:27] VITALS: BP 124/71
== END 2019-06-08 20:27 | disposition home or self-care (01) ==
LOC: D.ER 15:38
PROVIDERS: Family Medicine
DX: F41.9 Anxiety disorder, unspecified (principal); F06.8 Other specified mental disorders due to known physiological condition

== ENCOUNTER → 2020-04-01 10:59 | Outpatient (CLI) | payer MEDICARE ==
[2019-06-08 15:40] VITALS: BMI 42.5
[~2020-04-01 10:59] MED LIST changes: +ALOPHEN PILLS5 MG PO; +BUSPIRONE HCL7.5 MG PO; +CYMBALTA60 MG PO; +METOPROLOL TART25 MG PO; +MUPIROCIN15 GM TOPICAL; +SPIRIVA18 MCG INH; +SULFAMETHOXAZOL1 TA2 PO; +SYMBICORT 80-10.2 GM INH
== END | disposition home or self-care (01) ==
LOC: D.CT 10:59
PROVIDERS: ATTEND Nurse Practitioner Gerontology
DX: R10.9 Unspecified abdominal pain (principal)